=== PATIENT | female | born 1950 | race Caucasian/White ===

== ENCOUNTER → 2018-12-19 14:05 | Outpatient (CLI) | payer MEDICARE, OTHER, SELFPAY ==
--- NOTE | 2018-12-19 | DI.MG.S_ITS ---
BILATERAL DIGITAL SCREENING MAMMOGRAM 3D/2D WITH CAD: 12/19/2018 CLINICAL: Routine screening. Comparison is made to exams dated: 01/11/2017 mammogram, 07/21/2014 mammogram, and 05/18/2013 mammogram - [facility]. The tissue of both breasts is heterogeneously dense. This may lower the sensitivity of mammography. Current study was also evaluated with a Computer Aided Detection (CAD) system. There is possible architectural distortion in the right breast central to the nipple middle depth. No other significant masses, calcifications, or other findings are seen in either breast. IMPRESSION: INCOMPLETE: NEEDS ADDITIONAL IMAGING EVALUATION The possible architectural distortion in the right breast is indeterminate. Additional views with possible ultrasound are recommended. This exam was interpreted at Station ID: [id number]. NOTE: For mammograms, a report in lay terms will be sent to the patient. Approximately 15% of breast malignancies will not be visualized mammographically. In the management of a palpable breast mass, a negative mammogram must not discourage biopsy of a clinically suspicious lesion. Electronically Signed By: Vicky perera/teddy:12/19/2018 17:03:33 letter sent: Additional Imaging Needed ACR BI-RADS Category 0: Incomplete 3340F
== END ==
PROVIDERS: Family Provider Internal Medicine; PCP Internal Medicine; Visit Provider Internal Medicine
DX: Z12.31 Encounter for screening mammogram for malignant neoplasm of breast (principal); M81.0 Age-related osteoporosis without current pathological fracture; Z78.0 Asymptomatic menopausal state
CPT/HCPCS: 77063; 77067; 77080

== ENCOUNTER → 2018-12-31 14:16 | Outpatient (CLI) | payer MEDICARE, OTHER, SELFPAY ==
--- NOTE | 2018-12-31 | DI.US.S_ITS ---
LIMITED ULTRASOUND OF RIGHT BREAST AND AXILLA: 12/31/2018 CLINICAL: Patient returns today to evaluate an architectural distortion in the right breast. Comparison is made to exams dated: 12/31/2018 mammogram, 12/19/2018 mammogram, 01/11/2017 mammogram, 07/21/2014 mammogram, and 05/18/2013 mammogram - [facility]. Color flow and real-time ultrasound of the right breast retroareolar and axilla regions were performed on the areas of interest. There is a 0.6 cm x 0.6 cm x 0.7 cm irregular mass with an indistinct margin in the right breast central to the nipple anterior depth. This irregular mass is hypoechoic with posterior acoustic shadowing. This correlates with mammography findings. Color flow imaging demonstrates that there is an adjacent vascularity. No significant abnormalities were seen sonographically in the right axilla. IMPRESSION: HIGHLY SUGGESTIVE OF MALIGNANCY The 0.6 cm x 0.6 cm x 0.7 cm irregular mass in the right breast is highly suggestive of malignancy. An ultrasound guided biopsy is recommended. The findings were discussed with the patient at the conclusion of the study by Dr. Holloway. This exam was interpreted at Station ID: [id number]. Electronically Signed By: Olman Gonzalez M.D. ddsandra/:12/31/2018 16:27:58 letter sent: Biopsy Required Ultrasound BI-RADS: 5 Highly suggestive of malignancy
--- NOTE | 2018-12-31 | DI.MG.S_ITS ---
UNILATERAL RIGHT DIGITAL DIAGNOSTIC MAMMOGRAM 3D/2D WITH ADDITIONAL VIEWS: 12/31/2018 CLINICAL: Additional evaluation requested from prior study. Comparison is made to exams dated: 12/19/2018 mammogram, 01/11/2017 mammogram, and 07/21/2014 mammogram - [facility]. The tissue of right breast is heterogeneously dense. This may lower the sensitivity of mammography. The area of possible architectural distortion with indistinct margins in the right breast central to the nipple middle depth is not seen on additional views. No other significant masses or calcifications are seen in the breast. IMPRESSION: INCOMPLETE: NEEDS ADDITIONAL IMAGING EVALUATION The possible architectural distortion in the right breast does not persist on additional views. However, an ultrasound is recommended to exclude an underlying mass. This exam was interpreted at Station ID: [id number]. NOTE: For mammograms, a report in lay terms will be sent to the patient. Approximately 15% of breast malignancies will not be visualized mammographically. In the management of a palpable breast mass, a negative mammogram must not discourage biopsy of a clinically suspicious lesion. Electronically Signed By: Olman Gonzalez M.D. ddp/:12/31/2018 14:54:01 ACR BI-RADS Category 0: Incomplete 3340F
--- NOTE | 2019-02-03 09:00 | ONC.MSW ---
Description: New Referral Navigation T/C Activity: Called and left message for pt re: navigation and scheduling for initial ONC consult visit. Requested return call.
== END ==
PROVIDERS: Family Provider Internal Medicine; PCP Internal Medicine; Visit Provider Internal Medicine
DX: R92.8 Other abnormal and inconclusive findings on diagnostic imaging of breast (principal); N63.10 Unspecified lump in the right breast, unspecified quadrant
CPT/HCPCS: 76642; 77065; G0279

== ENCOUNTER → 2019-01-26 | Outpatient (CLI) | payer MEDICARE, OTHER, SELFPAY ==
--- NOTE | 2019-01-26 | PATH_ITS ---
[facility] Accession Number: [id number] . 01 Material submitted: . breast - RIGHT BREAST MASS . 01 Clinical history: . 12:00 RETROAREAOLAR . 02 Diagnosis: Right Breast Mass at 12 o'clock, Retroareolar, Needle Core Biopsy: Invasive ductal carcinoma with the following features: Penny grade: 1 of 3 (tubules 1-2 of 3; mitoses 1 of 3; nuclei 1 of 3). Greatest linear extent: 0.5 cm. Carcinoma in situ: Present; e-cadherin studies pending for further characterization. Microcalcifications: Present and are associated with benign ductal epithelium. Lymph-vascular invasion: Not identified. Prognostic markers: Will be performed and the results will be reported as an addendum. MRV 01/28/2019 1608 Local . 02 Comment: Results discussed with Dr. Liang on 01/28/19 at approximately 4:08 p.m. . QA performed by Dr. Casie Hammer. . 02 Electronically signed: . Aleisha Pace MD, Pathologist NPI- [id number] . 01 Gross description: . Received one formalin-filled container labeled with the patient's name and designated right breast mass 12 o'clock retroareolar. The specimen is received with a plastic filter in container, sample loose in container and consists of multiple 0.2-0.3 cm, yellow to yellow-davidson, cylindrical-shaped portions of tissue which range in length from 0.2 cm to 1.2 cm. The specimen is entirely submitted in one cassette. Collection date: 01/26/19. Collection time per container: 3:0.3 p.m. Total fixation time: Approximately 12 hours. ([id number]) /BARRERA 01/27/2019 0220 [facility] . 02 Pathologist provided ICD-10: C50.911 . 02 CPT . 750900, 104490, 954741, 971291 Performed at: 01 [facility] [address] [place] [address], [place], [place] [id number] MD Olman Werner MD Phone: [phone] Performed at: 02 [facility] [address] [place], [place] [id number] MD Kylie Hammer MD Phone: [phone]
--- NOTE | 2019-01-26 | DI.US.S_ITS ---
ULTRASOUND GUIDED BIOPSY RIGHT BREAST USING VACUUM DEVICE WITH MARKING DEVICE INSERTED AND POST MAMMOGRAPHIC IMAGIN01/26/2019 CLINICAL: Right breast mass. PATIENT CONSENT: Risks (minor bleeding, infection, vasovagal reaction and repeat procedure), benefits and alternatives were explained to the patient and written informed consent was obtained. Correlation is made to exams dated: 12/31/2018 ultrasound, 12/31/2018 mammogram, 12/19/2018 mammogram, 01/11/2017 mammogram, and 07/21/2014 mammogram - [facility]. An ultrasound guided biopsy using real-time ultrasound was performed for the 0.7 cm mass located in the right breast at 12 o'clock anterior depth. This was described on the previous mammography and ultrasound reports. The skin was prepped in the usual manner. Local anesthetic was administered to the access site. A skin steven was made in the breast. The abnormality was approached from the lateral aspect. A 13 gauge biopsy needle was placed adjacent to the abnormality under ultrasound guidance. Once the needle was documented to be in the correct location, five specimens were obtained using the Mammotome biopsy system. A clip was inserted into the biopsy cavity. A sterile dressing was applied to the access site. Post procedure mammographic imaging demonstrates the location device at the targeted area. The specimens were sent to the laboratory for pathological analysis. IMPRESSION: ULTRASOUND GUIDED BIOPSY MALIGNANT Ultrasound guided biopsy of the 0.7 cm mass in the right breast at 12 o'clock anterior depth was successful. Pathology indicates malignant invasive ductal carcinoma (ID) and ductal carcinoma in situ (DCIS). Pathology results are concordant with mammography and ultrasound findings. Surgical and oncological consultation are recommended. This exam was interpreted at Station ID: [id number]. Kedar casey,beatrice/:01/30/2019 12:37:27
--- NOTE | 2019-01-26 | DI.MG.S_ITS ---
UNILATERAL RIGHT DIGITAL DIAGNOSTIC MAMMOGRAM POST-NEEDLE BIOPSY: 01/26/2019 CLINICAL: Right breast mass. Comparison is made to exams dated: 12/31/2018 mammogram, 12/19/2018 mammogram, and 01/11/2017 mammogram - [facility]. The tissue of right breast is heterogeneously dense. This may lower the sensitivity of mammography. IMPRESSION: POST PROCEDURE MAMMOGRAM FOR MARKER PLACEMENT Successful biopsy marker 12 oclock right breast near nipple This exam was interpreted at Station ID: [id number]. NOTE: For mammograms, a report in lay terms will be sent to the patient. Approximately 15% of breast malignancies will not be visualized mammographically. In the management of a palpable breast mass, a negative mammogram must not discourage biopsy of a clinically suspicious lesion. Electronically Signed By: Kedar casey/:01/26/2019 16:17:18 ACR BI-RADS Category Post-procedure mammogram for marker placement
== END ==
PROVIDERS: PCP Internal Medicine; Visit Provider Internal Medicine
DX: C50.811 Malignant neoplasm of overlapping sites of right female breast (principal); Z17.0 Estrogen receptor positive status [ER+]
CPT/HCPCS: 19083; 77065

== ENCOUNTER → 2019-02-05 12:39 | Outpatient (CLI) | payer MEDICARE, OTHER, SELFPAY ==
[2019-02-05 14:23] LABS: Alanine Aminotransferase 18 IU/L (<35); Albumin 4.4 g/dL (3.5-5.0); Albumin Globulin Ratio 1.7 (1.0-2.8); Alkaline Phosphatase 70 U/L (38-126); Aspartate Aminotransferase 27 IU/L (14-36); Bilirubin Total 0.5 mg/dL (0.2-1.3); Bilirubin Unconjugated 0.4 mg/dL (0.0-1.1); Globulin 2.6 g/dL (1.7-4.1); HEMOLYSIS < 15 (0-50)
[2019-02-05 16:43] LABS: Hep C Virus Ab w/Reflex Quant NEGATIVE s/c (NEGATIVE)
== END ==
PROVIDERS: PCP Nurse Practitioner; Visit Provider Nurse Practitioner
DX: Z11.59 Encounter for screening for other viral diseases (principal); R10.12 Left upper quadrant pain
CPT/HCPCS: 36415; 80076; 86803

== ENCOUNTER → 2020-12-22 14:10 | Outpatient (CLI) | payer MEDICARE, OTHER, SELFPAY | PROVIDERS: PCP Nurse Practitioner; Referring Provider Nurse Practitioner; Visit Provider Nurse Practitioner | DX: M81.0 Age-related osteoporosis without current pathological fracture (principal); Z78.0 Asymptomatic menopausal state; Z85.3 Personal history of malignant neoplasm of breast; Z79.811 Long term (current) use of aromatase inhibitors; Z82.62 Family history of osteoporosis | CPT/HCPCS: 77080 ==

== ENCOUNTER → 2021-02-14 15:27 | Outpatient (CLI) | payer MEDICARE, OTHER, SELFPAY ==
[2021-02-14 17:29] LABS: Alanine Aminotransferase 19 IU/L (<35); Albumin 4.3 g/dL (3.5-5.0); Albumin Globulin Ratio 1.5 (1.0-2.8); Alkaline Phosphatase 53 U/L (38-126); Aspartate Aminotransferase 27 IU/L (14-36); BUN Creatinine Ratio 20.2 (6-22); Bilirubin Total 0.4 mg/dL (0.2-1.3); Blood Urea Nitrogen 17 mg/dL (7-17); Calcium 9.6 mg/dL (8.4-10.2); Carbon Dioxide 36 mmol/L (22-32); Chloride 100 mmol/L (98-107); Estimated Glomerular Filt Rate > 60.0 mL/min (>60); Globulin 2.9 g/dL (1.7-4.1); Glucose 88 mg/dL (80-110); HEMOLYSIS < 15 (0-50); Potassium 4.1 mmol/L (3.4-5.1); Sodium 141 mmol/L (137-145); Total Protein 7.2 g/dL (6.3-8.2)
[2021-02-14 17:43] LABS: Free T3, Triiodothyronine Free 3.59 pg/mL (2.77-5.27); Free T4, Direct Thyroxine 1.03 ng/dL (0.78-2.19)
[2021-02-14 17:56] LABS: Thyroid Stimulating Hormone 1.85 uIU/mL (0.47-4.68)
== END ==
PROVIDERS: PCP Nurse Practitioner; Referring Provider Nurse Practitioner; Visit Provider Nurse Practitioner
DX: F41.8 Other specified anxiety disorders (principal); G47.00 Insomnia, unspecified; Z79.899 Other long term (current) drug therapy
CPT/HCPCS: 36415; 80053; 84439; 84443; 84481

== ENCOUNTER → 2021-05-11 12:13 | Outpatient (CLI) | payer MEDICARE, OTHER, SELFPAY ==
--- NOTE | 2021-05-11 12:14 | DI.US.S_ITS ---
PROCEDURE: US ABDOMEN COMPLETE INDICATIONS: rt sided rib pain, abd pain, nausea TECHNIQUE: Real-time scanning was performed of the abdominal and retroperitoneal organs, with image documentation. COMPARISON: None. FINDINGS: Liver: Liver is normal in size overall normal echogenicity. Liver cysts are seen, which measure up to 1.3 cm. Gallbladder: Likely sludge can be seen within the gallbladder lumen. To potential polyps can be seen. The gallbladder wall is not thickened, measuring 3 mm or less. No specific pericholecystic fluid is seen. The sonographic Ferrer sign is negative. Biliary ducts: Intrahepatic bile ducts are non-dilated. Extrahepatic bile duct caliber measures 4 mm. Normal is 6-7 mm or less in diameter, or 10 mm or less post-cholecystectomy. Pancreas: Visualized portions of the pancreas are sonographically normal. Spleen: Spleen is normal in size and homogeneous in echotexture. Kidneys: Kidneys are normal in size and echotexture. Right kidney measures 10.5 cm long; left kidney measures 10.1 cm long. No hydronephrosis or nephrolithiasis. No solid masses. A left liver cyst is seen that measures up to 1.3 cm. Aorta: Visualized aorta is normal in caliber at less than 3 cm. Iliacs: Proximal common iliac arteries are normal in caliber at less than 2.5 cm. IVC: Intrahepatic inferior vena cava is patent. Miscellaneous: No free abdominal fluid. IMPRESSION: Sludge can be seen within the gallbladder lumen, without additional sonographic signs of cholecystitis. No biliary dilatation. Two apparent gallbladder polyps are seen. Liver cysts and a left liver cyst can be seen. Dictated by: Adebayo Higgins M.D. on 05/11/2021 at 12:49 Approved by: Adebayo Higgins M.D. on 05/11/2021 at 12:51
== END ==
PROVIDERS: PCP Nurse Practitioner; Referring Provider Nurse Practitioner; Visit Provider Nurse Practitioner
DX: K82.4 Cholesterolosis of gallbladder (principal); K76.89 Other specified diseases of liver; K82.8 Other specified diseases of gallbladder; R07.81 Pleurodynia; R10.9 Unspecified abdominal pain; R11.0 Nausea
CPT/HCPCS: 76700

== ENCOUNTER 2021-07-27 15:23 | Emergency (ER) | payer MEDICARE, OTHER, SELFPAY ==
[2021-07-27] VITALS (10 sets, daily range): BP systolic 165–186; BP diastolic 67–91; PULSE 82–95; RESP 16–28; TEMP 36.5; O2SAT 97–99; BMI 21.5
--- NOTE | 2021-07-27 15:32 | DI.RAD.S_ITS ---
PROCEDURE: XR CHEST 1V INDICATIONS: altered mental status TECHNIQUE: One view of the chest was acquired. COMPARISON: None. FINDINGS: Surgical changes and devices: None. Lungs and pleura: Lungs are clear. No pleural effusions or pneumothorax. Mediastinum: Mediastinal contours appear normal. Heart size is normal. Bones and chest wall: No suspicious bony lesions. Overlying soft tissues appear unremarkable. IMPRESSION: No acute process. Dictated by: Danna Quintana M.D. on 07/27/2021 at 16:26 Approved by: Danna Quintana M.D. on 07/27/2021 at 16:27
[2021-07-27 16:06] LABS: Add Manual Diff / Slide Review NO; Basophils Absolute Auto 100 /uL (0-100); Basophils Percent Auto 0.7 % (0-2); Eosinophils Absolute Auto 100 /uL (0-450); Eosinophils Percent Auto 1.4 % (2-4); Hematocrit 45.6 % (36-46); Hemoglobin 15.3 g/dL (12.0-16.0); Lymphocytes Absolute Auto 2500 /uL (1100-4500); Lymphocytes Percent Auto 31.8 % (25-40); Mean Corpuscular HGB Conc 33.7 % (30-36); Mean Corpuscular Hemoglobin 31.2 PG (26-34); Mean Corpuscular Volume 92.7 fL (80-100); Monocytes Absolute Auto 600 /uL (0-900); Monocytes Percent Auto 7.9 % (3-14); Neutrophils Absolute Auto 4700 /uL (1500-7000); Neutrophils Percent Auto 58.2 % (50-75); Platelet Count 278 X10^3/uL (150-400); Red Blood Cell Count 4.92 X10^6/uL (4.0-5.2); Red Cell Distribution Width 13.1 % (11.6-14.8)
[2021-07-27 16:25] LABS: Appearance Urine UA CLEAR; Bilirubin Urine UA NEGATIVE (NEGATIVE); Color Urine UA YELLOW; Glucose Urine UA NEGATIVE (Negative); Ketones Urine UA NEGATIVE (NEGATIVE); Leukocyte Esterase Urine UA NEGATIVE (NEGATIVE); Nitrite Urine UA NEGATIVE (Negative); Occult Blood Urine UA NEGATIVE (Negative); Protein Urine UA NEGATIVE (Negative); Specific Gravity Urine UA <=1.005 (1.000-1.035); Urobilinogen Urine UA 0.2 E.U./dL (0.2)
[2021-07-27 16:34] LABS: Alanine Aminotransferase 20 IU/L (<35); Albumin 4.7 g/dL (3.5-5.0); Albumin Globulin Ratio 1.6 (1.0-2.8); Alkaline Phosphatase 58 U/L (38-126); Aspartate Aminotransferase 33 IU/L (14-36); Bilirubin Total 0.5 mg/dL (0.2-1.3); Blood Urea Nitrogen 17 mg/dL (7-17); Calcium 9.5 mg/dL (8.4-10.2); Carbon Dioxide 30 mmol/L (22-32); Chloride 102 mmol/L (98-107); Estimated Glomerular Filt Rate > 60 mL/min (>60); Glucose 90 mg/dL (80-110); HEMOLYSIS 41 (0-50); Potassium 3.5 mmol/L (3.4-5.1); Sodium 140 mmol/L (137-145); Total Protein 7.7 g/dL (6.3-8.2)
[2021-07-27 16:35] LABS: Ur Creatinine Normal (Normal); Ur Specific Gravity Normal (Normal); Urine pH Normal (Normal)
[2021-07-27 16:36] LABS: UR Morphine/Opiate cutoff 300 Negative (Negative); Urine Amphetamines Negative (Negative); Urine Barbiturates Negative (Negative); Urine Benzodiazepines Negative (Negative); Urine Cocaine Negative (Negative); Urine MDMA Negative (Negative); Urine Methadone Negative (Negative); Urine Methamphetamines Negative (Negative); Urine Oxycodone Negative (Negative); Urine Phencyclidine Negative (Negative); Urine Tetrahydrocannabinol Negative (Negative); Urine Tricyclic Antidepressant Negative (Negative)
[2021-07-27 16:44] LABS: pH Urine UA 6.5 (4.5-8.0)
[2021-07-27 16:50] LABS: Ammonia (NH3) < 9 umol/L (9-30)
[2021-07-27 17:22] LABS: Bacteria Urine None Seen; Culture Indicated Urine Cult Not Indicated; RBC Urine 0-1/HPF (0-5/HPF); Squamous Epithelial Cell Urine 0-1 /HPF (0-5/HPF); WBC Urine 0-1/HPF (0-5/HPF)
--- NOTE | 2021-07-27 18:30 | DI.CT.S_ITS ---
PROCEDURE: CT HEAD/BRAIN WO CON INDICATIONS: probable TIA TECHNIQUE: Noncontrast 4.5 mm thick angled axial sections acquired from the foramen magnum to the vertex, with coronal and sagittal reformats. For radiation dose reduction, the following was used: automated exposure control, adjustment of mA and/or kV according to patient size. COMPARISON: None. FINDINGS: Image quality: Excellent. CSF spaces: Basal cisterns are patent. A posterior fossa 3.2 cm arachnoid cyst is incidentally noted. The ventricles are symmetric in size and shape. Brain: No intracranial bleeds or masses. There is cerebral volume loss for age, with resultant ventricular and sulcal prominence. There are periventricular and deep white matter chronic small vessel ischemic changes. There is intracranial internal carotid artery atherosclerosis. Skull and face: Calvarium and visualized facial bones appear intact, without suspicious lesions. Sinuses: Visualized sinuses and mastoids are clear. IMPRESSION: No acute intracranial hemorrhage is seen. No acute intracranial process is seen. If there is strong clinical suspicion for an acute stroke, please consider a brain MRI for further evaluation, as it is more sensitive (assuming that there is no contraindication to MRI). Posterior fossa presumed arachnoid cyst incidentally noted. Dictated by: Adebayo Higgins M.D. on 07/27/2021 at 17:47 Approved by: Adebayo Higgins M.D. on 07/27/2021 at 17:49
--- NOTE | 2021-07-27 18:30 | ED.GENADULT ---
HPI - General Adult General Chief complaint: Altered Mental Status Stated complaint: episodes of unclarity last couple of days Time Seen by Provider: 07/27/21 17:56 Source: patient Mode of arrival: Ambulatory History of Present Illness HPI narrative: Patient is a 70-year-old female who is here for evaluation of an episode that occurred approximately 36 hours ago. She states that she had a 20 minute episode where in she was at home by herself. She states she walked into a room where there was a ironing board that was set up. She states that she was very confused about why it was set up. She stated that she walked around the house and there were other things set around the house that she was very confused as to why they were in the places that they were in. There was no one there to talk to so she is unsure if she had any speech should differences. She reports no headache. No chest pain. No palpitations. Was not week. Was not lightheaded. No ringing in her ears. No extremity weakness. No abdominal pain. No nausea vomiting. She thinks that the all the symptoms lasted approximately 20 minutes and then completely resolved. She has never had anything like this in the past. Not on anticoagulation. No history of heart disease. No history of strokes. She did not come in to be evaluated at the time. She contacted her primary doctor today who told her to come to the emergency department for evaluation. Related Data Home Medications Medication Instructions Recorded Confirmed fexofenadine 180 mg tablet 180 mg PO DAILY 02/05/19 05/16/21 (Allergy Relief (fexofenadine)) multivitamin PO 02/05/19 05/16/21 omeprazole 20 mg capsule,delayed 20 mg PO DAILY 05/19/19 05/16/21 release calcium 600 mg PO BID 02/14/21 05/16/21 cholecalciferol (vitamin D3) 50 2,000 unit PO BID tab 02/14/21 05/16/21 mcg (2,000 unit) tablet Previous Rx's Medication Instructions Recorded acyclovir 200 mg capsule 200 mg PO DAILY #90 cap 02/14/21 bupropion HCl 150 mg 24 hr tablet, 150 mg PO QAM #90 tab 02/14/21 extended release fluticasone propionate 50 1 spray NASAL DAILY #54.6 ml 02/14/21 mcg/actuation nasal spray,suspension (Allergy Relief (fluticasone)) trazodone 50 mg tablet 50 mg PO BEDTIME PRN #90 tab 02/14/21 zaleplon 5 mg capsule See Rx Instructions PO DAILY PRN 02/14/21 #180 cap Allergies Allergy/AdvReac Type Severity Reaction Status Date / Time meperidine [From Demerol] AdvReac Mild Verified 05/16/21 15:29 Review of Systems Review of Systems ROS Unobtainable: All systems reviewed & are unremarkable except as noted in HPI and below Patient History Medical History Aromatase inhibitor use Breast cancer Depression with anxiety Endometriosis Frequent PVCs Gallbladder polyp GERD (gastroesophageal reflux disease) Hay fever Insomnia Invasive ductal carcinoma of right breast in female Osteopenia Surgical History H/O arthroscopy of left knee History of appendectomy History of left oophorectomy Social History Smoking Status: Never smoker alcohol intake: current substance use type: does not use Smoking Status: Never smoker alcohol intake frequency: holidays/special occasions only Substance Use Type: does not use Exam Initial Vital Signs Initial Vital Signs: Vital Signs Temperature 97.7 F 07/27/21 15:26 Pulse Rate 90 07/27/21 15:26 Respiratory Rate 18 07/27/21 15:26 Blood Pressure 184/91 H 07/27/21 15:26 Pulse Oximetry 98 07/27/21 15:26 Const General: cooperative, comfortable, well developed, well groomed and No ill appearing HENMT Head: normal to inspection and normocephalic Face and sinus: normal facial exam Mouth: oral mucosae normal Eyes Pupils: PERRL EOM: EOM intact bilaterally Resp Effort & Inspection: normal respiratory effort Auscultation: clear to auscultation bilaterally Cardio Rate: regular rate Rhythm: regular rhythm Heart Sounds: murmur GI Inspection: normal to inspection Palpation: soft, No firm and No tender Skin General: no rashes or lesions noted Neuro General: patient alert, patient awake, patient oriented x3, gait normal, tone normal and moves all extremities Cranial Nerves: CN's II-XI intact bilaterally Cognition: normal cognition Speech: speech normal Gait: normal gait Extrem General: normal to inspection and capillary refill normal Psych Appearance: grossly normal and well kempt Scores ABCD2 Age >= 60 years: yes Initial BP. Either SBP >= 140 or DBP >= 90.: yes Clinical features of the TIA: other symptoms Duration of symptoms: 10-59 minutes History of diabetes: no ABCD2 Score: 3 GCS Tatyana coma scale eye opening: Spontaneous [place] coma scale verbal response: Orientated Tatyana coma scale motor response: Obey commands Tatyana coma scale total score: 15 Course Orders Ordered: ED Orders 07/27/21 15:32 XR chest 1V Stat EKG-12 Lead Stat 07/27/21 15:55 Complete Blood Count AUTO DIFF Stat Comprehensive Metabolic Panel Stat 07/27/21 16:00 Urinalysis and Microscopic Stat Urine Drug Screen, Rapid Stat 07/27/21 16:15 Ammonia (NH3) Stat 07/27/21 18:30 CT head/brain wo con Stat Vital Signs Vital signs: Vital Signs - 8 hr 07/27/21 16:30 07/27/21 17:10 07/27/21 17:31 Pulse Rate 87 84 91 H Respiratory Rate 16 19 28 H Blood Pressure 165/70 H 173/77 H 169/74 H Pulse Oximetry 97 98 98 07/27/21 18:00 07/27/21 18:30 07/27/21 19:00 Pulse Rate 86 87 85 Respiratory Rate Blood Pressure 176/79 H 186/85 H Pulse Oximetry 98 97 99 07/27/21 19:19 Pulse Rate 82 Respiratory Rate Blood Pressure 174/77 H Pulse Oximetry 99 Medical Decision Making Lab Data Lab results reviewed: Yes I reviewed the patient's lab results. Result diagrams: 07/27/21 15:55 07/27/21 15:55 Labs: Lab Results 07/27/21 07/27/21 07/27/21 Range/Units 15:55 15:55 16:00 WBC 8.0 (4.5-11.0) X10^3/uL RBC 4.92 (4.0-5.2) X10^6/uL Hgb 15.3 (12.0-16.0) g/dL Hct 45.6 (36-46) % MCV 92.7 (80-100) fL MCH 31.2 (26-34) PG MCHC 33.7 (30-36) % RDW 13.1 (11.6-14.8) % Plt Count 278 (150-400) X10^3/uL Neut % (Auto) 58.2 (50-75) % Lymph % (Auto) 31.8 (25-40) % [place] % (Auto) 7.9 (3-14) % Eos % (Auto) 1.4 L (2-4) % Baso % (Auto) 0.7 (0-2) % Neut # (Auto) 4700 (3805-4549) /uL Lymph # (Auto) 2500 (0566-7487) /uL [place] # (Auto) 600 (0-900) /uL Eos # (Auto) 100 (0-450) /uL Baso # (Auto) 100 (0-100) /uL Sodium 140 (137-145) mmol/L Potassium 3.5 (3.4-5.1) mmol/L Chloride 102 (98-107) mmol/L Carbon Dioxide 30 (22-32) mmol/L BUN 17 (7-17) mg/dL Creatinine 0.81 (0.52-1.04) mg/dL Estimated GFR > 60 (>60) mL/min BUN/Creatinine Ratio 21.0 (6-22) Glucose 90 (80-110) mg/dL Calcium 9.5 (8.4-10.2) mg/dL Total Bilirubin 0.5 (0.2-1.3) mg/dL AST 33 (14-36) IU/L ALT 20 (<35) IU/L Alkaline Phosphatase 58 (38-126) U/L Ammonia (9-30) umol/L Total Protein 7.7 (6.3-8.2) g/dL Albumin 4.7 (3.5-5.0) g/dL Globulin 3.0 (1.7-4.1) g/dL Albumin/Globulin Ratio 1.6 (1.0-2.8) Urine Color Urine Appearance Urine pH (4.5-8.0) Ur Specific [place] (1.000-1.035) Urine Protein (Negative) Urine Glucose (UA) (Negative) g/dL Urine Ketones (NEGATIVE) Urine Occult Blood (Negative) Urine Nitrate (Negative) Urine Bilirubin (NEGATIVE) Urine Urobilinogen (0.2) E.U./dL Ur Leukocyte Esterase (NEGATIVE) Urine RBC (0-5/HPF) Urine WBC (0-5/HPF) Ur Squamous Epith Cells (0-5/HPF) Urine Bacteria (None) Ur Culture Indicated? U Opiates 300ng/mL cut Negative (Negative) Ur Oxycodone Screen Negative (Negative) Urine Methadone Screen Negative (Negative) Ur Barbiturates Screen Negative (Negative) U Tricyclic Antidepress Negative (Negative) Ur Phencyclidine Scrn Negative (Negative) Ur Amphetamines Screen Negative (Negative) U Methamphetamines Scrn Negative (Negative) Ur MDMA Scrn (Ecstasy) Negative (Negative) U Benzodiazepines Scrn Negative (Negative) Urine Cocaine Screen Negative (Negative) U Marijuana (THC) Screen Negative (Negative) 07/27/21 07/27/21 Range/Units 16:00 16:15 WBC (4.5-11.0) X10^3/uL RBC (4.0-5.2) X10^6/uL Hgb (12.0-16.0) g/dL Hct (36-46) % MCV (80-100) fL MCH (26-34) PG MCHC (30-36) % RDW (11.6-14.8) % Plt Count (150-400) X10^3/uL Neut % (Auto) (50-75) % Lymph % (Auto) (25-40) % [place] % (Auto) (3-14) % Eos % (Auto) (2-4) % Baso % (Auto) (0-2) % Neut # (Auto) (2402-2763) /uL Lymph # (Auto) (5860-5096) /uL [place] # (Auto) (0-900) /uL Eos # (Auto) (0-450) /uL Baso # (Auto) (0-100) /uL Sodium (137-145) mmol/L Potassium (3.4-5.1) mmol/L Chloride (98-107) mmol/L Carbon Dioxide (22-32) mmol/L BUN (7-17) mg/dL Creatinine (0.52-1.04) mg/dL Estimated GFR (>60) mL/min BUN/Creatinine Ratio (6-22) Glucose (80-110) mg/dL Calcium (8.4-10.2) mg/dL Total Bilirubin (0.2-1.3) mg/dL AST (14-36) IU/L ALT (<35) IU/L Alkaline Phosphatase (38-126) U/L Ammonia < 9 L (9-30) umol/L Total Protein (6.3-8.2) g/dL Albumin (3.5-5.0) g/dL Globulin (1.7-4.1) g/dL Albumin/Globulin Ratio (1.0-2.8) Urine Color Yellow Urine Appearance Clear Urine pH 6.5 (4.5-8.0) Ur Specific [place] <=1.005 (1.000-1.035) Urine Protein Negative (Negative) Urine Glucose (UA) Negative (Negative) g/dL Urine Ketones Negative (NEGATIVE) Urine Occult Blood Negative (Negative) Urine Nitrate Negative (Negative) Urine Bilirubin Negative (NEGATIVE) Urine Urobilinogen 0.2 (0.2) E.U./dL Ur Leukocyte Esterase Negative (NEGATIVE) Urine RBC 0-1/hpf (0-5/HPF) Urine WBC 0-1/hpf (0-5/HPF) Ur Squamous Epith Cells 0-1 /hpf (0-5/HPF) Urine Bacteria None seen (None) Ur Culture Indicated? Cult not indicated U Opiates 300ng/mL cut (Negative) Ur Oxycodone Screen (Negative) Urine Methadone Screen (Negative) Ur Barbiturates Screen (Negative) U Tricyclic Antidepress (Negative) Ur Phencyclidine Scrn (Negative) Ur Amphetamines Screen (Negative) U Methamphetamines Scrn (Negative) Ur MDMA Scrn (Ecstasy) (Negative) U Benzodiazepines Scrn (Negative) Urine Cocaine Screen (Negative) U Marijuana (THC) Screen (Negative) Urine Dip Bedside Urine Glucose Negative Bedside Urine Bilirubin - Negative Bedside Urine Ketone - Negative Urine Specific [place] 1.010 Bedside Urine Occult Blood - Negative Bedside Urine pH 6.0 Bedside Urine Protein - Negative Bedside Urine Urobilinogen - Negative Bedside Urine Nitrite - Negative Bedside Urine Leukocytes - Negative Esterase Point of care testing: Urine Dip Bedside Urine Glucose Negative Bedside Urine Bilirubin - Negative Bedside Urine Ketone - Negative Urine Specific [place] 1.010 Bedside Urine Occult Blood - Negative Bedside Urine pH 6.0 Bedside Urine Protein - Negative Bedside Urine Urobilinogen - Negative Bedside Urine Nitrite - Negative Bedside Urine Leukocytes - Negative Esterase Imaging Data Chest x-ray: Radiologist's Impression: [place] [id number] XRay Report Signed Patient: Karin Gregorio MR#: [id number] : 1950 Acct:[id number] Age/Sex: 70 / F Date of Service: 07/27/21 Loc: ED Accession Number: [id number] ?? Procedure: XR chest 1V Ordering Provider: Tatianna Chapman D.O. PROCEDURE:? XR CHEST 1V ? INDICATIONS:? altered mental status ? TECHNIQUE:? One view of the chest was acquired.? ? COMPARISON:? None. ? FINDINGS:? ? Surgical changes and devices:? None.? ? Lungs and pleura:? Lungs are clear.? No pleural effusions or pneumothorax.? ? Mediastinum:? Mediastinal contours appear normal.? Heart size is normal.? ? Bones and chest wall:? No suspicious bony lesions.? Overlying soft tissues appear unremarkable.? ? IMPRESSION:? No acute process. ? ? Dictated by: Danna Quintana M.D. on 07/27/2021 at 16:26 ? ? Approved by: Danna Quintana M.D. on 07/27/2021 at 16:27?? CT scan - head: Radiologist's Impression: [address] [address] [address] Scan Report Signed Patient: Karin Gregorio MR#: [id number] : 1950 Acct:[id number] Age/Sex: 70 / F Date of Service: 07/27/21 Loc: ED Accession Number: [id number] ?? Procedure: CT head/brain wo con Ordering Provider: Artemio Phillips D.O. PROCEDURE:? CT HEAD/BRAIN WO CON ? INDICATIONS:? probable TIA ? TECHNIQUE:? Noncontrast 4.5 mm thick angled axial sections acquired from the foramen magnum to the vertex, with coronal and sagittal reformats.? For radiation dose reduction, the following was used:? automated exposure control, adjustment of mA and/or kV according to patient size.? ? COMPARISON:? None. ? FINDINGS:? Image quality:? Excellent.? ? CSF spaces:? Basal cisterns are patent.? A posterior fossa 3.2 cm arachnoid cyst is incidentally noted.? The ventricles are symmetric in size and shape.? ? Brain:? No intracranial bleeds or masses.? There is cerebral volume loss for age, with resultant ventricular and sulcal prominence.? There are periventricular and deep white matter chronic small vessel ischemic changes.? There is intracranial internal carotid artery atherosclerosis.? ? Skull and face:? Calvarium and visualized facial bones appear intact, without suspicious lesions.? ? Sinuses:? Visualized sinuses and mastoids are clear.? ? IMPRESSION:? No acute intracranial hemorrhage is seen.? ? No acute intracranial process is seen.? ? If there is strong clinical suspicion for an acute stroke, please consider a brain MRI for further evaluation, as it is more sensitive (assuming that there is no contraindication to MRI). ? Posterior fossa presumed arachnoid cyst incidentally noted. ? ? Dictated by: Adebayo Higgins M.D. on 07/27/2021 at 17:47 ? ? Approved by: Adebayo Higgins M.D. on 07/27/2021 at 17:49? ECG Data Attestation: I personally reviewed and interpreted this ECG as follows: Interpretation: Sinus rhythm Ventricular rate 81 Normal axis Normal QRS Normal QTC Nonspecific ST T wave changes MDM Narrative Medical decision making narrative: Patient is completely asymptomatic. Her reported symptoms are subjective in nature and it was which she describes as a ?unclarity ?as to what was going on around her. Did not appear to be any speech issues. No muscular weakness. Her head CT today is unremarkable. The rest of her neurologic exam and her workup was unremarkable. Did consider TIA. Her ABCD2 score is 3 which puts her at low risk. Will start her on a aspirin. I will have her contact her primary doctor for follow-up. She did have a heart murmur which she states is not new for her. She was given strict return precautions and follow-up instructions. She expressed understanding and agreement. Discharge Plan Departure Patient Disposition: Home Clinical Impression: Brain TIA Instructions: DI for Transient Ischemic Attack Activity Restrictions/Additional Instructions: Recommend that you continue to take all of your medications as directed. Contact your primary doctor for a follow-up. I do recommend that you start on aspirin on a daily basis. Return to the emergency department for any new or worsening symptoms. Be sure to take your blood pressure at home like we discussed. Prescriptions: No Action omeprazole 20 mg capsule,delayed release(DR/EC) 20 mg PO DAILY 0RF acyclovir 200 mg capsule 200 mg PO DAILY Qty: 90 3RF Rx Instructions: Herpes suppression bupropion HCl 150 mg tablet extended release 24 hr 150 mg PO QAM Qty: 90 3RF Rx Instructions: Take 1 tab by mouth daily for depression trazodone 50 mg tablet 50 mg PO BEDTIME PRN (Reason: insomnia) Qty: 90 3RF fluticasone propionate [Allergy Relief (fluticasone)] 50 mcg/actuation spray,suspension 1 spray NASAL DAILY Qty: 54.6 3RF zaleplon 5 mg capsule See Rx Instructions PO DAILY PRN (Reason: insomnia) Qty: 180 3RF Rx Instructions: Take 1-2 caps by mouth as needed for insomnia. cholecalciferol (vitamin D3) 50 mcg (2,000 unit) tablet 2,000 unit PO BID 0RF Label Comments: Take 2000iu twice daily for treatment of osteoporosis with calcium 600mg twice per day calcium 600 mg PO BID 0RF Rx Instructions: Take 600mg twice per day along with Vitamin D3 2000iu twice per day fexofenadine [Allergy Relief (fexofenadine)] 180 mg tablet 180 mg PO DAILY 0RF multivitamin PO 0RF Referrals: Sejal Munguia ARNP [Primary Care Provider] -
== END 2021-07-27 19:27 | disposition home or self-care (01) ==
PROVIDERS: Emergency Medicine; Emergency Provider Emergency Medicine; PCP Nurse Practitioner
DX: G45.9 Transient cerebral ischemic attack, unspecified (principal); R03.0 Elevated blood-pressure reading, without diagnosis of hypertension; R94.31 Abnormal electrocardiogram [ECG] [EKG]
CPT/HCPCS: 36415; 70450; 71045; 80053; 80305; 81001; 81003; 82140; 85025; 93005; 93010; 99283; 99284

== ENCOUNTER → 2021-08-10 15:53 | Outpatient (CLI) | payer MEDICARE, OTHER, SELFPAY ==
--- NOTE | 2021-08-10 | DI.MRI.S_ITS ---
PROCEDURE: MR STROKE Pre- and post-contrast brain MRI, non-contrast brain MR angiogram, pre- and postcontrast neck MR angiogram INDICATIONS: Transient cerebral ischemic attack, unspecified TECHNIQUE: Brain: Noncontrast axial T1 spin echo, axial T2 fast spin echo, sagittal and axial FLAIR, coronal T2 fast spin echo, axial gradient echo, axial diffusion and ADC through the brain. After the administration of contrast, axial 3D VIBE of the cranial vasculature and brain. Brain MRA: Non-contrast 3-D time of flight MR angiogram, with multiple slskibt-fgckrquke-bwvfuhjmwr (MIP) reformats performed. Neck MRA: Axial and sagittal TruFISP through the neck. Coronal dynamic MR angiogram during administration of contrast in the arterial and venous phases, with 3-dimenstional vppeepw-oispzgdau-pwxtqtkvtn (MIP) reformats constructed from subtraction images. COMPARISON: [facility], CT, CT HEAD/BRAIN WO CON, 07/27/2021, 18:37. FINDINGS: Image quality: Excellent. BRAIN: CSF spaces: Ventricles are normal in size and shape. Basal cisterns are patent. A nonenhancing posterior fossa arachnoid cyst is again seen. Brain: No intracranial bleeds or mass effects. Henry-white matter interface is normal. Diffusion weighted images show no acute ischemic insults. Brainstem appears normal. Normal intravascular flow voids are present. No abnormal intracranial enhancement. Note is made of age-appropriate brain parenchymal volume loss and chronic small vessel ischemic changes. Nonenhancing cystic foci can be seen within the left basal ganglia. Skull and face: Calvarial marrow signal is normal. Orbits appear normal. Sinuses: Sinuses and mastoids are clear. BRAIN MR ANGIOGRAM: Anterior circulation: Intracranial internal carotid arteries are normal in size and enhancement. The flow within the paired anterior cerebral arteries is normal and symmetric. The flow within the middle cerebral arteries is normal and symmetric. The anterior communicating artery is not well seen. No stenoses, occlusions, or aneurysms. Posterior circulation: The visualized portions of the vertebral arteries demonstrate normal caliber, and join to form a normal appearing basilar artery. There is a prominent left posterior communicating artery seen, with an accompanying diminutive left P1 segment. This is attributed to a type origin of the left posterior cerebral artery, which is considered to be a normal developmental variant of typically no clinical consequence. The flow within the posterior cerebral arteries is normal and symmetric. No stenoses, occlusions, or aneurysms. NECK MR ANGIOGRAM: Carotids: Great vessels demonstrate a conventional anatomy as they arise from the aortic arch. The origins of the common carotid arteries appear patent. The calibers and courses of both common carotid arteries are normal. The bifurcation regions appear normal bilaterally. The internal carotid arteries demonstrate normal course and caliber. Posterior circulation: The origins of the vertebral arteries appear patent. More superior portions of both vertebral arteries demonstrate normal course and caliber, and join to form a normal appearing basilar artery. Miscellaneous: Subclavian arteries appear patent. Pre-contrast images through the neck show no soft tissue abnormalities. IMPRESSION: BRAIN MRI: No findings of acute or subacute infarction can be seen. Nonenhancing cystic foci can be seen within the left basal ganglia, which are likely related to remote infarcts. Differential diagnosis includes developmental anomalies, however. Note is made of age-appropriate brain parenchymal volume loss and chronic small vessel ischemic changes. BRAIN MR ANGIOGRAM: No significant intracranial arterial abnormality is seen. Incidental note is made of a type origin of the left posterior cerebral artery. NECK MR ANGIOGRAM: Within the arteries of the neck, no hemodynamically significant stenosis can be seen. Dictated by: Adebayo Higgins M.D. on 08/10/2021 at 16:06 Approved by: Adebayo Higgins M.D. on 08/10/2021 at 16:10
== END ==
PROVIDERS: PCP Nurse Practitioner; Referring Provider Nurse Practitioner; Visit Provider Nurse Practitioner
DX: G45.9 Transient cerebral ischemic attack, unspecified (principal); G93.9 Disorder of brain, unspecified
CPT/HCPCS: 70548; 70553

== ENCOUNTER → 2022-02-01 13:47 | Outpatient (CLI) | payer MEDICARE, OTHER, SELFPAY ==
[2022-02-01 15:11] LABS: Appearance Urine UA SL CLOUDY; Bilirubin Urine UA NEGATIVE (NEGATIVE); Color Urine UA YELLOW; Glucose Urine UA NEGATIVE (Negative); Ketones Urine UA NEGATIVE (NEGATIVE); Leukocyte Esterase Urine UA 2+ (NEGATIVE); Nitrite Urine UA NEGATIVE (Negative); Occult Blood Urine UA 3+ (Negative); Protein Urine UA 1+ (Negative); Specific Gravity Urine UA <=1.005 (1.000-1.035); Urobilinogen Urine UA 0.2 E.U./dL (0.2)
[2022-02-01 15:16] LABS: pH Urine UA 5.5 (4.5-8.0)
[2022-02-01 15:23] LABS: Bacteria Urine None Seen; Culture Indicated Urine Specimen Cultured; RBC Urine 10-30/HPF (0-5/HPF); Squamous Epithelial Cell Urine 1-5 /HPF (0-5/HPF); WBC Urine 30-100/HPF (0-5/HPF)
== END ==
PROVIDERS: PCP Nurse Practitioner; Referring Provider Nurse Practitioner; Visit Provider Nurse Practitioner
DX: R30.0 Dysuria (principal); N39.0 Urinary tract infection, site not specified
CPT/HCPCS: 81001; 87077; 87086; 87186

== ENCOUNTER → 2022-08-30 13:04 | Outpatient (CLI) | payer MEDICARE, OTHER, SELFPAY ==
[2022-08-30 15:16] LABS: Alanine Aminotransferase 18 IU/L (<35); Albumin 3.8 g/dL (3.5-5.0); Albumin Globulin Ratio 1.6 (1.0-2.8); Alkaline Phosphatase 69 U/L (38-126); Aspartate Aminotransferase 24 IU/L (14-36); BUN Creatinine Ratio 20.8 (6-22); Bilirubin Total 0.4 mg/dL (0.2-1.3); Blood Urea Nitrogen 16 mg/dL (7-17); Carbon Dioxide 30 mmol/L (22-32); Chloride 103 mmol/L (98-107); Estimated Glomerular Filt Rate > 60 mL/min (>60); Globulin 2.4 g/dL (1.7-4.1); Glucose 81 mg/dL (80-110); HEMOLYSIS < 15 (0-50); Potassium 4.2 mmol/L (3.4-5.1); Sodium 137 mmol/L (137-145); Total Protein 6.2 g/dL (6.3-8.2)
[2022-08-30 15:31] LABS: Free T3, Triiodothyronine Free 4.09 pg/mL (2.77-5.27); Free T4, Direct Thyroxine 1.11 ng/dL (0.78-2.19)
[2022-08-30 15:44] LABS: Thyroid Stimulating Hormone 1.76 uIU/mL (0.47-4.68)
== END ==
PROVIDERS: PCP Nurse Practitioner; Referring Provider Nurse Practitioner; Visit Provider Nurse Practitioner
DX: F41.8 Other specified anxiety disorders (principal); G47.00 Insomnia, unspecified; M81.0 Age-related osteoporosis without current pathological fracture; Z79.899 Other long term (current) drug therapy; Z79.811 Long term (current) use of aromatase inhibitors
CPT/HCPCS: 36415; 80053; 84439; 84443; 84481

== ENCOUNTER → 2023-01-31 14:15 | Outpatient (CLI) | payer MEDICARE, OTHER, SELFPAY ==
--- NOTE | 2023-01-31 14:17 | DI.RAD.S_ITS ---
Bone Density Report Name: LUCIUS ESTES Age: 72 Sex: Female Ethnicity: White Date of : 1950 Indication: postmenopausal osteoporosis; Referring Provider: BHANU EPNALOZA Study: Bone densitometry was performed. Exam Date: January 31, 2023 Accession number: [id number] Bone Density: Region BMD T-score Z-score Classification AP Spine(L3, L4) 0.767 -3.0 -0.5 Osteoporosis Femoral Neck (Left) 0.504 -3.1 -1.1 Osteoporosis Total Hip (Left) 0.640 -2.5 -0.7 Osteoporosis Femoral Neck (Right) 0.584 -2.4 -0.4 Osteopenia Total Hip (Right) 0.723 -1.8 -0.1 Osteopenia Total Hip Mean 0.682 -2.2 -0.4 Osteopenia World Health Organization criteria for BMD impression classify patients as: Normal (T-score at or above -1.0), Osteopenia (T-score between -1.0 and -2.5), or Osteoporosis (T-score at or below -2.5). 10-year Fracture Risk: FRAX not reported because: Some T-score for Spine Total or Hip Total or Femoral Neck at or below -2.5 Previous Exams: -- Region Exam Age BMD T-score BMD Change BMD Change Date g/cm2 vs Baseline vs Previous -- AP Spine (L3-L4) 01/31/2023 72 0.767 -3.0 -0.144 (-15.8%)# -0.112 (-12.7%)# 12/22/2020 70 0.879 -2.0 -0.032 (-3.5%)* -0.032 (-3.5%)* 12/19/2018 68 0.911 -1.7 Total Hip(Left) 01/31/2023 72 0.640 -2.5 -0.004 (-0.7%)# 0.034 (5.6%)# 12/22/2020 70 0.606 -2.8 -0.038 (-5.9%)* -0.038 (-5.9%)* 12/19/2018 68 0.644 -2.4 Total Hip(Right) 01/31/2023 72 0.723 -1.8 0.027 (3.9%)# 0.089 (14.1%)# 12/22/2020 70 0.634 -2.5 -0.062 (-8.9%)* -0.062 (-8.9%)* 12/19/2018 68 0.696 -2.0 -- *Denotes significance at 95% confidence level, LSC for AP Spine = 0.022 g/cm2, LSC for Total Hip = 0.027 g/cm2 Rate of change results reflect vertebral levels common to all scans # Denotes dissimilar scan types or analysis methods Impression: The patient has osteoporosis, based on the Left Femoral Neck T-score. No significant bone loss was observed. Discussion: INCREASED RISK OF FRACTURE. BONE DENSITY IS UNDESIRABLY LOW AT ONE OR MORE SKELETAL SITES, CONSISTENT WITH POSTMENOPAUSAL OSTEOPOROSIS. This patient's lowest T-score meets the World Health Organization's (WHO) criteria for osteoporosis at one or more sites (T-score -2.5 or below). In untreated patients, the risk of osteoporotic fracture increases approximately two-fold for each 1.0 SD decrease in T-score. Low bone density is not the only risk factor for fracture; also consider factors such as patient's age, frailty or poor health, risk of falling, risk of injury, previous osteoporotic fracture, family history of osteoporosis, cigarette smoking, low body weight, etc. Not everyone with low bone mineral density has osteoporosis; osteomalacia and other metabolic bone disorders should also be considered. Patients who have osteoporosis should be evaluated for specific diseases and conditions (secondary causes) that may cause or contribute to bone loss. The [place] [employer]ocrinologists (AACE) and National Osteoporosis Foundation (NOF) recommend pharmacologic intervention for all postmenopausal women whose T-score is in this range. The patient should follow a healthful lifestyle (good nutrition with adequate calcium and vitamin D, and appropriate weight-bearing exercise). Follow-Up: Consider a repeat BMD and Vertebral Fracture Assessment (VFA) exam in 2 years or sooner if medically necessary, to reassess this patient's status. Reported by: WENDY GARCÍA M.D. on 01/31/2023 2:32:00 PM.
== END ==
PROVIDERS: PCP Nurse Practitioner; Referring Provider Nurse Practitioner; Visit Provider Nurse Practitioner
DX: M81.0 Age-related osteoporosis without current pathological fracture (principal)
CPT/HCPCS: 77080